=== PATIENT | female | born 1930 | race African-American/Black ===

== ENCOUNTER 2017-04-19 14:46 | Emergency (ER) | payer OTHER, BC ==
[~2017-04-19] VITALS: Ht 165.1 cm; Wt 67.1 kg
--- NOTE | ~2017-04-19 | EKG ---
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 : 1930 Requested By: Brayden Anderson Order Number: [id number] MD: Denver Win Measurements Intervals [place] Rate: 43 P: 57 MT: 166 QRS: 37 QRSD: 95 T: 62 QT: 524 QTc: 444 Interpretive Statements Sinus bradycardia Atrial premature complex LVH with secondary repolarization abnormality Compared to ECG 10/23/2013 08:42:46 Atrial premature complex(es) now present Left ventricular hypertrophy now present Early repolarization now present Sinus rhythm no longer present Electronically Signed On 04-20-2017 16:13:15 CDT by Denver Win [email or web address] <ELECTRONICALLY SIGNED> By: Denver Win MD 04/20/17 1613 1501 1501 Denver Win MD /EPI
[~2017-04-19 14:46] MED LIST: ACETAMINOPHEN325 M1 PO; ASPIRIN EC81 M1 PO; DILTIAZEM 24HR360 M1 PO; DIOVAN HCT 3201 EAC1 PO; DRAMAMINE50 MG PO; HEALTHYLAX17 GM PO; HYDRALAZINE 5050 MG PO; KLOR-CON 10 ER10 MEQ PO; LISINOPRIL40 MG PO; MECLIZINE HCL12.5 MG PO; MOBIC15 MG PO; SINGULAIR 10 MG10 M1 PO; VESICARE10 M1 PO; ZOCOR40 MG PO
[2017-04-19] MEDS ORDERED: XALATAN2.5 ML OPHTHALMIC (15:16)
[2017-04-19] MEDS ORDERED: CLONIDINE HCL0.1 MG PO (15:16)
[2017-04-19] MEDS ORDERED: POTASSIUM CHLOR8 ME2 PO (15:16)
[2017-04-19] MEDS ORDERED: PROMETHAZINE/C118 ML PO (15:16)
[2017-04-19] MEDS ORDERED: LOSARTAN-HCTZ1 EAC1 PO (15:17)
[2017-04-19] MEDS ORDERED: HYDROCODONE-AP1 EAC6 PO (15:17)
[2017-04-19 15:28] LABS: HEMATOCRIT 38.1 % (37.0-47.0); MCH 30.6 pg (26.0-34.0); MCHC 33.9 g/dL (28.0-37.0); MCV 90.3 fL (80.0-100.0); PLATELET COUNT 203 thou/uL (150-400); RBC 4.23 mil/uL (4.20-5.00); RDW 13.1 % (10.5-14.5); WBC 5.5 thou/uL (4.0-11.0)
[2017-04-19 15:31] LABS: MANUAL DIFF YES
[2017-04-19 15:41] LABS: CALCIUM 9.1 mg/dL (8.5-10.1); CREATININE 0.7 mg/dL (0.6-1.0); POTASSIUM 3.4 mmol/L (3.5-5.1)
[2017-04-19 15:46] LABS: APTT 25.3 Seconds (24.5-32.8); PROTIME 10.7 Seconds (9.3-11.4)
[2017-04-19 15:47] LABS: ABSOLUTE NEUTROPHILS 4.7 thou/uL (1.4-8.2); TOTAL CELL COUNT 100
[2017-04-19 15:48] LABS: ANISOCYTOSIS 1+
[2017-04-19 15:52] LABS: MAGNESIUM 2.1 mg/dL (1.8-2.4); TOTAL BILIRUBIN 0.5 mg/dL (<0.1-1.0); TOTAL PROTEIN 7.7 g/dL (6.4-8.2); TROPONIN-I 0.1 ng/mL (<0.04-0.07)
[2017-04-19] MEDS ORDERED: VALIUM2 MG PO (17:16)
[2017-04-19] MEDS ORDERED: ANTIVERT25 MG PO (17:16)
== END 2017-04-19 18:12 | disposition home or self-care (01) ==
LOC: ER 14:46
PROVIDERS: Emergency Medicine
DX: I10 Essential (primary) hypertension (principal); H81.11 Benign paroxysmal vertigo, right ear; K21.9 Gastro-esophageal reflux disease without esophagitis; F10.99 Alcohol use, unspecified with unspecified alcohol-induced disorder; Z98.890 Other specified postprocedural states; Z88.8 Allergy status to other drugs, medicaments and biological substances